=== PATIENT | female | born 1975 | race Caucasian/White ===

== ENCOUNTER 2022-06-28 04:14 | Day surgery (SDC) | payer BC ==
[2022-06-27 14:28] VITALS: BMI 21.1
[2022-06-28] MEDS ORDERED: KETAMINE HCL 500 MG/10 ML VIAL ONE (07:14)
[2022-06-28 08:37] VITALS: TEMP 98
[2022-06-28 09:04] VITALS: BP 102/48; PULSE 78; RESP 20
== END 2022-06-28 09:37 | disposition home or self-care (01) ==
LOC: JASU-ENDO 04:14
PROVIDERS: ATTEND Internal Medicine Gastroenterology
PROC: 0DJD8ZZ Inspection of Lower Intestinal Tract, Via Natural or Artificial Opening Endoscopic (ICD-10-PCS; principal; 2022-06-28 08:00)
DX: Z12.11 Encounter for screening for malignant neoplasm of colon (principal); Z86.010 Personal history of colon polyps
CPT/HCPCS: 81025